=== PATIENT | male | born 1965 | race Caucasian/White ===

== ENCOUNTER → 2017-10-22 | Outpatient (CLI) | payer OTHER ==
[~2017-10-22] MED LIST: ADVIL100 M2 PO; ALEVE220 MG PO; ATORVASTATIN CA20 MG PO; BAYER CHEWABLE81 MG PO; LOPRESSOR 50 MG50 M1 PO; NICOTINE GUM2 MG BC; NITROGLYCERIN0.4 MG SL; PLAVIX 75 MG TA75 MG PO
--- NOTE | 2017-10-25 07:18 | TST ---
[place] [address] TREADMILL STRESS TEST Name: HICKEYJANE Epps Room: [facility]#: [id number] Admission: 10/22/17 Attend Phys: Dannie Graves MD Discharge: Date of : 67 Date of Service: 10/22/17 1222 Report #: [id number] THIS REPORT FOR: //name// CC: Dannie Edward DATE OF SERVICE: 10/22/2017 TITLE OF PROCEDURE: Exercise stress test. INDICATIONS: Exercise stress test was requested in this patient with a history of coronary artery disease. RESULTS: The patient was exercised on a Chip protocol from a pretest heart rate of 60, blood pressure 134/88. The patient was able to exercise for 9 minutes on a Chip protocol achieving a peak heart rate of 160, which was greater than 85% of maximum predicted heart rate for the patient's age. Peak blood pressure 196/94. In recovery, the patient had heart rate of 92, blood pressure 154/96. The patient denied any chest pain with exercise terminated because of achieving target heart rate. The patient's resting ECG showed a normal sinus rhythm with no significant ST or T-wave change noted at baseline. With exercise, there was no arrhythmia noted. There was only rare PVC and ventricular couplet noted. At peak exercise, the patient was noted to have J-point depression, but there was no significant ST-segment depression at 80 milliseconds after the J-point. IMPRESSION: 1. Adequate exercise tolerance. 2. No chest pain with exercise. 3. No ischemic ST segment change with exercise. 4. Negative exercise stress test for myocardial ischemia. 5. This stress test is felt to be a low-risk study for future cardiac events. <ELECTRONICALLY SIGNED> By: Dannie Graves MD, FACC 10/25/17 0718 1222 1941 Dannie Graves MD, FACC /nt
== END ==
LOC: M.CRD 10:40
DX: I25.118 Atherosclerotic heart disease of native coronary artery with other forms of angina pectoris (principal)

== ENCOUNTER 2019-09-06 08:36 | Observation (INO) | payer OTHER ==
[2019-09-06] VITALS (19 sets, daily range): BP systolic 115–152; BP diastolic 68–88
[~2019-09-06] VITALS: Ht 175.3 cm; Wt 102.1 kg
[~2019-09-06 08:36] MED LIST changes: -LOPRESSOR 50 MG50 M1 PO; +LOPRESSOR50 PO; +METFORMIN HCL500 MG PO
[2019-09-06 09:10] LABS: HEMATOCRIT 44.4 % (42.0-52.0); HEMOGLOBIN 16.2 gm/dL (14.0-18.0); MCH 31.2 pg (26.0-34.0); MCHC 36.6 g/dL (28.0-37.0); MCV 85.4 fL (80.0-100.0); MPV 8.9 fl. (7.2-11.1); RBC 5.2 mil/uL (4.50-6.00); RDW-CV 13.8 % (10.5-14.5); WBC 7.7 thou/uL (4.0-11.0)
--- NOTE | 2019-09-06 09:32 | EKG ---
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: : 1965 Requested By: Dannie Graves Order Number: [id number] Reading MD: Dannie Graves Measurements Intervals [place] Rate: 57 P: 66 [place]: 195 QRS: 82 QRSD: 108 T: 32 QT: 431 QTc: 420 Interpretive Statements Sinus bradycardia Low voltage, extremity leads Compared to ECG 12/02/2012 08:51:16 No significant changes Electronically Signed On 09-06-2019 9:30:22 CDT by Dannie Graves [email or web address] <ELECTRONICALLY SIGNED> By: Dannie Graves MD, [facility] 09/06/19929 1 1 Dannie Graves MD, [facility] /EPI
[2019-09-06 09:56] LABS: ANION GAP 11 mmol/L (7-16); APTT 25.4 Seconds (25.0-31.3); BUN 18 mg/dL (7-18); CALCIUM 8.9 mg/dL (8.5-10.1); CHLORIDE 104 mmol/L (98-107); CO2 24 mmol/L (21-32); CREATININE 1.1 mg/dL (0.6-1.3); GLUCOSE 223 mg/dL (70-99); INR 1.1; POTASSIUM 4.2 mmol/L (3.5-5.1); PROTIME 10.8 Seconds (9.20-11.50); SODIUM 139 mmol/L (136-145)
[2019-09-06 10:01] LABS: ALKALINE PHOSPHATASE 63 U/L (46-116); CHOLESTEROL 156 mg/dL (<200); HDL CHOLESTEROL 25 mg/dL (>40); LDL CHOLESTEROL 80 mg/dL (<100); SGOT 41 U/L (15-37); SGPT 78 U/L (30-65); TC:HDL 6.2 Ratio (Not establshd); TOTAL BILIRUBIN 0.8 mg/dL (<0.1-1.0); TOTAL PROTEIN 7.5 g/dL (6.4-8.2); TRIGLYCERIDE 258 mg/dL (<150); VLDL 52 mg/dL (<40)
[2019-09-06 10:02] LABS: SERUM ASSESSMENT Clear
--- NOTE | 2019-09-06 14:15 | EKG ---
[place] [address] ELECTROCARDIOGRAM REPORT Name: JANE HICKEY Room: [address] M.R.#: [id number] Admission: 09/06/19 Attend Phys: Dannie Graves MD Discharge: Date of : 67 Date of Service: 09/06/19 1331 Report #: [id number] THIS REPORT FOR: //name// [facility] Test Date: 2019-09-06 Test Time: 13:31:07 Pat Name: JANE HICKEY Department: Room: [address] Gender: M Mooner: : 1965 Requested By: Dannie Graves Order Number: [id number] Dylan MD: Dannie Graves Measurements Intervals [place] Rate: 67 P: 39 [place]: 198 QRS: 92 QRSD: 113 T: 1 QT: 434 QTc: 458 Interpretive Statements Sinus rhythm Borderline intraventricular conduction delay Borderline low voltage, extremity leads Compared to ECG 09/06/2019 09:22:18 Sinus bradycardia no longer present Electronically Signed On 09-06-2019 14:13:48 CDT by Dannie Graves [email or web address] <ELECTRONICALLY SIGNED> By: Dannie Graves MD, [facility] 09/06/19 1413 1331 1331 Dannie Graves MD, [facility] /EPI
--- NOTE | 2019-09-06 16:18 | CARD ---
[address] [address] CARDIAC CATH REPORT Name: JANE HICKEY Room: [address]#: [id number] Admission: 09/06/19 Attend Phys: Dannie Graves MD, F Discharge: Date of : 67 Report #: [id number] THIS REPORT FOR: //name// cc: Danish Edward Karl ~ APPROVED REPORT Study performed: 09/06/2019 09:29:49 Patient Details Patient Status: Out-Patient Room #: The patient is a 53 year-old male Event Personnel Dannie Graves Water System Operator, Lupe Lowe RN RN, Evangelina Stevenson RTR Scrub, Evangelina Stevenson RTR Scrub, Brice Astudillo ENVIRONMENTAL AIDE Monitor Procedures Performed TEJ Place w/wo Plasty RCA [id number] Left Heart Cath w/or w/o Coronaries [id number] [facility] Indication Positive stress test, Chest pain Risk Factors Hypercholesterolemia, Coronary Artery Disease, Diabetes Previous Procedures/Diagnoses Previous PCI, Previous MT Admission/Lab Medications/Medications given during procedure Glycoprotein IllbIlla Inhibitors, Heparin Unfract. Procedure Narrative The patient was brought electively to the Cardiac Catheterization Laboratory and was prepped and draped in a sterile manner. The right wrist was infiltrated with 1% Lidocaine subcutaneous anesthesia. A Slender Glidesheath sheath was inserted into the RRA. Coronary angiography was performed using coronary diagnostic catheters. The right coronary system was accessed and visualized with a JR4 catheter. The left coronary system was accessed and visualized with a JL 3.5 6fr catheter. The left ventricle was accessed and visualized with a PIG catheter. Left ventricular/A[place] [address] CARDIAC CATH REPORT Name: HICKEY,JANETORO GÓMEZ JR Room: [address]#: [id number] Admission: 09/06/19 Attend Phys: Dannie Graves MD, F Discharge: Date of : 67 Report #: [id number] via catheter pullback. Closure device was deployed with a 6 Fr Vasc-Band Reg 24cm. The patient tolerated the procedure well and there were no complications associated with the procedure. There was no hematoma. Unable to cannulate left main artery with JL4.0 catheter. Intraoperative Conscious Sedation Sedation start time: 10:37 Case end Time: 11:45 Fluoro Time: 16.5 minutes Dose: DAP 3340 cGycm2 121 mGy Contrast Type and Amount: Omnipaque 205 ml Coronary Angiography The patient's coronary anatomy is right dominant. Diagnostic Cath Left Main 30% distal stenosis LAD 60% mid stenosis Diagonal 1 small vessel with 80% proximal stenosis Circumflex small vessel with 90% proximal and 90% distal stenosis Right Coronary long stent at the acute margin of the vessel appeared occluded and filled retrograde by collaterals from the left coronary artery. Ramus large vessel with 70% proximal stenosis noted Left Ventriculography The left ventricular ejection fraction is estimated to be 45-50%. Left ventricular wall motion abnormalities are present. There is no mitral insufficiency. mild inferior hypokinesis noted Hemodynamics The aortic pressure is 102/54 mmHg with a mean of 75 mmHg. The left ventricular pressure is 97/10 mmHg with a mean of mmHg. The left ventricular end diastolic pressure is 10 mmHg. There was no gradient across the aortic valve upon pullback. Pullback from the left ventricle to the aorta revealed no gradient across the aortic valve. PCI Technique Lesion Anticoagulation was achieved with Heparin. bolus of IV aggrastat given Percutaneous coronary intervention was performed on the mid right coronary artery. The lesion stenosis [place] [address] CARDIAC CATH REPORT Name: HICKEYJANE Epps JR Room: [address]#: [id number] Admission: 09/06/19 Attend Phys: Dannie Graves MD, F Discharge: Date of : 67 Report #: [id number] 100% with MURIEL 0 flow. A JCR4 5 Fr Guide Catheter was used to engage the rca ostium. A Choice PT Wire extrasupport 182cm Interventional Guidewire was used to cross the lesion. BALLOON DILATION A Balloon catheter Trek RX 2.5 X 8 was inserted and inflated up to 8.00atm for 21seconds. Repeat angiography revealed the following post-dilatation results: 60% stenosis. Additional Inflation: 12.00atm for 14seconds. Additional Inflation: 12.00atm for 11seconds. BMW wire was unable to cross the stenosis. STENT DEPLOYMENT A drug-eluting stent [place] RX Stent 2.5X38mm was inserted and inflated up to 10.00atm for 8seconds. Repeat angiography revealed the following post-stent deployment results: 0% stenosis. Additional Inflation: 16.00atm for 14seconds. Second 2.75 mm x 38 mm stent was placed in the mid rca proximal to the first stent so that there was minimal overlap between this stent and the more distal first stent. A third 3.0mm x 15 mm stent was placed proximally so the there was minimal overlap between this stent and the second stent placed in the mid rca. Final angiography reveals 0 % stenosis with MURIEL 3 flow. COMMENTS Long area of stenosis noted after PTCA of the chronically occluded proximal and mid RCA that went all the way to the distal bifircation of the RCA, required 3 tandem stents to cover the entire area of stenosis. Stent Deployment A stent [place] RX Stent 2.73m16sc was inserted and inflated up to 15atm for 21seconds. Additional Inflation: 16atm for 20seconds. Stent Deployment A stent [place] RX Stent 3.0X15mm was inserted and inflated up to 17atm for 20seconds. Additional Inflation: 17atm for 21seconds. Conclusion 1. 60% stenosis of the mid LAD, and 80% stenosis noted of a small first diagonal branch 2. 2 tandem 90% stenoses noted in a small circumflex artery. 3. 70% proximal stenosis noted in a large ramus artery. 4. 100% occlusion of the stents noted in the mid RCA that filled [address] [address] CARDIAC CATH REPORT Name: JANE HICKEY JR Room: [address]R.#: [id number] Admission: 09/06/19 Attend Phys: Dannie Graves MD, F Discharge: Date of : 67 Report #: [id number] retrograde by collaterals from the left coronary artery. 5. successful placement of 3 drug eluting stents in the proximal and mid rca 6. LVEF 45-50% Recommendations Cardiac Rehabilitation Referral Aggressive Medical Therapy Medications Administered Prasugrel <ELECTRONICALLY SIGNED> By: Dannie Graves MD, [facility] 09/06/19 1616 15 1616Davimich Graves MD, [facility] /INF
[2019-09-07] VITALS: BP 126/71
[2019-09-07 03:51] LABS: HEMATOCRIT 42.9 % (42.0-52.0); HEMOGLOBIN 15.5 gm/dL (14.0-18.0); MCH 31.1 pg (26.0-34.0); MCHC 36.1 g/dL (28.0-37.0); MCV 86.2 fL (80.0-100.0); MPV 7.8 fl. (7.2-11.1); RBC 4.97 mil/uL (4.50-6.00); RDW-CV 13.8 % (10.5-14.5); WBC 7.4 thou/uL (4.0-11.0)
[2019-09-07 04:00] VITALS: BP 123/79
[2019-09-07 04:10] LABS: CALCIUM 8.8 mg/dL (8.5-10.1); POTASSIUM 3.9 mmol/L (3.5-5.1); TROPONIN-I LEVEL 0.12 ng/mL (<0.06)
[2019-09-07 08:00] VITALS: BP 133/76
[2019-09-07 10:25] VITALS: BP 133/76
[2019-09-07 11:35] VITALS: BP 140/90
[2019-09-07] MEDS ORDERED: GLYBURIDE 5 MG T5 M1 PO (13:21)
[2019-09-07] MEDS ORDERED: EFFIENT10 MG PO (13:22)
[2019-09-07] MEDS ORDERED: ACETAMINOPHEN650 M5 PO (13:30)
[2019-09-07 13:34] VITALS: BP 133/76
--- NOTE | 2019-09-07 16:07 | H ---
[address] [address] HISTORY AND PHYSICAL Name: JANE HICKEY JR Room: [address] M.R.#: [id number] Admission: 09/06/19 Attend Phys: Dannie Graves MD, F Discharge: Date of : 67 Report #: [id number] THIS REPORT FOR: //name// cc: Danish Edward Karl ~ THIS REPORT FOR: //name// CC: Dannie Edward DO DATE OF SERVICE: 09/06/2019 HISTORY OF PRESENT ILLNESS: The patient is a 53-year-old white male who was brought to the outpatient department to undergo repeat cardiac catheterization. The patient initially presented back in 2012 with chest pain. He was found to have evidence of a myocardial infarction. I placed two drug-eluting stents in his right coronary artery via the radial approach. He has done well since that time. He stays fairly active. Recently, however, he notes that when he inhaled cold air, he developed a tightness in his chest with exertion. There is no radiation of the pain. He denies any fever or cough. He recently saw my nurse practitioner and underwent a nuclear stress test. He walked on the treadmill and denied any chest pain. There were no ST segment changes noted. There was occasional PVC. Perfusion images showed a bkvrjldg-ld-cbrktg intensity reversible defect in the basal inferior wall consistent with ischemia. I have recommended he undergo repeat cardiac catheterization. PAST MEDICAL HISTORY: Significant for diabetes, hypertension, hyperlipidemia. MEDICATIONS: Include metoprolol, Lipitor, aspirin, metformin. ALLERGIES: HE HAS AN ALLERGY TO SULFA DRUGS. SOCIAL HISTORY: He is . He and his live in [place], [place]. 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 Quit smoking in 2012. REVIEW OF SYSTEMS: There is no history of stroke, asthma, peptic ulcer disease, liver disease, kidney disease, cancer, psychiatric illness, chronic skin condition. PHYSICAL EXAMINATION: GENERAL: Revealed a middle-aged male, who appeared in no distress. VITAL SIGNS: Blood pressure 130/80, pulse is 70, and he is afebrile. HEENT: He was anicteric. Conjunctivae are pink. Mucous membranes moist. NECK: Neck veins are not distended[place] [address] HISTORY AND PHYSICAL Name: JANE HICKEY Room: [address]#: [id number] Admission: 09/06/19 Attend Phys: Dannie Graves MD, F Discharge: Date of : 67 Report #: [id number] CHEST: Clear to auscultation. CARDIOVASCULAR: Regular rate and rhythm. ABDOMEN: Soft. EXTREMITIES: Had no edema. Posterior pulse 2+ bilaterally. SKIN: Cool and dry. NEUROLOGIC: Nonfocal. IMPRESSION AND RECOMMENDATIONS: 1. Coronary artery disease. Previous stent. Abnormal Cardiolite. 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 2. Diabetes. 3. Hypertension. The patient is on a beta kiana. 4. Previous tobacco abuse. <ELECTRONICALLY SIGNED> By: Dannie Graves MD, [facility] 09/07/19 1607 0926 0950Davigama Graves MD, FAC /nt
--- NOTE | 2019-09-07 16:07 | D ---
[facility] [address] [place] [address] DISCHARGE SUMMARY Name: JANE HICKEY JR Room: [address] M.R.#: [id number] Admission: 09/06/19 Attend Phys: Dannie Graves MD, F Discharge: Date of : 67 Report #: [id number] THIS REPORT FOR: //name// cc: Danish Edward Karl ~ THIS REPORT FOR: //name// CC: Dannie Edward DO DATE OF SERVICE: 09/07/2019 DISCHARGE DIAGNOSES: 1. Coronary artery disease. 2. Abnormal stress test. 3. Diabetes. 4. Hypertension. 5. Previous tobacco abuse. CONSULTANTS: None. PROCEDURES: Left heart catheterization from the right radial artery with placement of 3 drug-eluting stents in the right coronary artery. 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 The patient presented with chest pain back in 2012 and is found to have a myocardial infarction. I placed two drug-eluting stents in his right coronary artery via the radial approach that time. He has done well since that time. The last winter, he noticed when he inhaled cold air, he developed a tightness in his chest. There was no radiation to the discomfort. Denies shortness of breath, palpitations. He saw my nurse practitioner in March. She recommended a nuclear stress test. The patient eventually had a stress test done in August. This showed a moderate size severe intensity reversible defect in the inferior wall with an ejection fraction of 53%. 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 He actually denied any recent chest pain, shortness of breath, palpitations. PAST MEDICAL HISTORY: He has had previous knee arthroscopy. He has a history of hyperlipidemia, diabetes, hypertension. MEDICATIONS: Include aspirin, Lipitor and metoprolol. He is no longer on metformin because he developed a discomfort of his chest. ALLERGIES: HE HAS ALLERGY [place] [address] DISCHARGE SUMMARY Name: JANE HICKEY JR Room: [address]#: [id number] Admission: 09/06/19 Attend Phys: Dannie Graves MD, F Discharge: Date of : 67 Report #: [id number] PHYSICAL EXAMINATION: VITAL SIGNS: Blood pressure 130/80 and pulse 70. CHEST: Clear to auscultation. CARDIOVASCULAR: Regular rate and rhythm. ABDOMEN: Soft. EXTREMITIES: Had no edema. SKIN: Warm and dry. NEUROLOGIC: Nonfocal. DIAGNOSTIC DATA: His ECG on admission showed sinus bradycardia, no ST or T-wave change. LABORATORY DATA: On admission, his sodium 139, BUN 13, creatinine 1.0, glucose was 223, SGOT 41, SGPT 78. Cholesterol 156, triglyceride 258, HDL 25, LDL 80. His white blood cell count 7.7 and hemoglobin 16.2. HOSPITAL COURSE: The patient was brought to the outpatient department. I performed left heart catheterization via the right radial artery. Results showed an ejection fraction 45% with inferior wall hypokinesis. There was a 60% narrowing in the mid LAD, small first diagonal branch had an 80% ostial narrowing. The circumflex was a small nondominant vessel with a 90% mid stenosis. The stents in the mid right coronary artery appeared chronically occluded with collateral filling from the left anterior descending artery in a retrograde fashion. There was a medium sized ramus branch, had a 70% stenosis. I then performed angioplasty with reperfusion of the right coronary artery that required placement of 3 drug-eluting stents. He tolerated the procedure well. He had no further chest pain, arrhythmias or shortness of breath. He had no hematoma in the right wrist following the procedure. He was loaded with Effient 60 mg p.o. He was given a bolus of Aggrastat. Prior to discharge, he was ambulating and had no further complaints. At the time of discharge, the patient denied any complaints. He had a blood pressure of 130/70 and pulse is 80. Followup laboratory after procedure included creatinine 1.0. His troponin is 0.12. His hemoglobin is 15.9. He was discharged on his home medications include aspirin 81 mg a day, Lipitor was increased to 40 mg a day. He was to continue metoprolol tartrate 50 mg twice a day. He was started on Effient 10 mg a day and he has nitroglycerin to take as needed for chest pain. He was no longer taking metformin and his blood sugars were noted to be elevated during his hospitalization. I recommended started glyburide 5 mg a day. The patient was discharged and he is scheduled to return to see me in the Cardiology Clinic in 1 month for followup. I recommended he not do any heavy lifting with right arm for 3 days. If he had recurrent chest pain, he was to contact my office. 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 In October, he is scheduled to return to see me in Cardiology Clinic, at that time, we will probably recommend a stress test because of his coronary artery disease. If he continued to have elevated blood pressure, I would [address] [place] [address] DISCHARGE SUMMARY Name: JANE HICKEY Room: [address] M.R.#: [id number] Admission: 09/06/19 Attend Phys: Dannie Graves MD, F Discharge: Date of : 67 Report #: [id number] recommend adding an AVI inhibitor because of vascular disease. I did recommend he checkup with his primary care physician for monitoring his blood sugars. Because of his high triglycerides, I would consider adding Zetia 10 mg a day. <ELECTRONICALLY SIGNED> By: Dannie Graves MD, [facility] 09/07/19 1607 1258 1400Davigama Graves MD, FACC /nt
--- NOTE | 2019-09-07 16:14 | EKG ---
[place] [address] ELECTROCARDIOGRAM REPORT Name: JANE HICKEY Room: [address]R.#: [id number] Admission: 09/06/19 Attend Phys: Dannie Graves MD Discharge: Date of : 67 Date of Service: 09/07/19 0408 Report #: [id number] THIS REPORT FOR: //name// [facility] Test Date: 2019-09-07 Test Time: 04:08:54 Pat Name: JANE HICKEY Department: Room: [address] Gender: M Associate Loan Officer: DT : 1965 Requested By: Dannie Graves Order Number: [id number] Reading MD: Dannie rGaves Measurements Intervals [place] Rate: 73 P: 51 [place]: 195 QRS: 77 QRSD: 106 T: 30 QT: 422 QTc: 465 Interpretive Statements Sinus rhythm Low voltage, extremity leads Compared to ECG 09/06/2019 13:31:07 No significant changes Electronically Signed On 09-07-2019 16:12:24 CDT by Dannie Graves [email or web address] <ELECTRONICALLY SIGNED> By: Dannie Graves MD, [facility] 09/07/19 1612 0408 0408 Dannie Graves MD, [facility] /EPI
== END 2019-09-07 16:45 | disposition home or self-care (01) ==
LOC: M.CL 08:36 → M.TBA-CV 12:20 → M.2W 12:20
PROVIDERS: ADMIT Internal Medicine Cardiovascular Disease
DX: I25.10 Atherosclerotic heart disease of native coronary artery without angina pectoris (principal); E11.9 Type 2 diabetes mellitus without complications; I10 Essential (primary) hypertension; E78.00 Pure hypercholesterolemia, unspecified

== ENCOUNTER → 2021-01-09 | Outpatient (CLI) | payer OTHER ==
[~2021-01-09] MED LIST changes: +ACETAMINOPHEN650 M5 PO; +EFFIENT10 MG PO; +GLYBURIDE 5 MG T5 M1 PO
[2021-01-09 10:50] LABS: ALBUMIN 4.4 g/dL (3.4-5.0); ALKALINE PHOSPHATASE 88 U/L (46-116); ANION GAP 9 mmol/L (7-16); BUN 13 mg/dL (7-18); CALCIUM 8.9 mg/dL (8.5-10.1); CHLORIDE 102 mmol/L (98-107); CHOLESTEROL 158 mg/dL (<200); CO2 26 mmol/L (21-32); CREATININE 1.1 mg/dL (0.6-1.3); GLUCOSE 218 mg/dL (70-99); HDL CHOLESTEROL 30 mg/dL (>40); LDL CHOLESTEROL 89 mg/dL (<100); POTASSIUM 4.1 mmol/L (3.5-5.1); SGOT 60 U/L (15-37); SGPT 84 U/L (30-65); SODIUM 137 mmol/L (136-145); TC:HDL 5.3 Ratio (Not establshd); TOTAL BILIRUBIN 0.9 mg/dL (<0.1-1.0); TOTAL PROTEIN 7.9 g/dL (6.4-8.2); TRIGLYCERIDE 199 mg/dL (<150); VLDL 40 mg/dL (<40)
[2021-01-09 10:54] LABS: SERUM ASSESSMENT Clear
[2021-01-09 23:06] LABS: GLYCOHEMOGLOBIN (HGB A1C) 8.9 % (4.8-5.6)
== END ==
LOC: M.LAB 10:16
PROVIDERS: ATTEND Nurse Practitioner
DX: E11.9 Type 2 diabetes mellitus without complications (principal); E78.5 Hyperlipidemia, unspecified; I25.5 Ischemic cardiomyopathy; I25.10 Atherosclerotic heart disease of native coronary artery without angina pectoris

== ENCOUNTER 2021-06-03 16:15 | Inpatient (IN) | payer OTHER ==
[~2021-06-03] VITALS: Ht 177.8 cm; Wt 105.7 kg
[2021-06-03 16:30] VITALS: BP 142/86
[2021-06-03 17:07] LABS: ABSOLUTE LYMPHOCYTES 0.6 thou/uL (0.8-5.3); ABSOLUTE MONOCYTES 0.5 thou/uL (0.0-1.2); ABSOLUTE NEUTROPHILS 2.7 thou/uL (1.6-8.1); BASOPHILS 0.5 %; HEMATOCRIT 38.9 % (42.0-52.0); HEMOGLOBIN 13.9 gm/dL (14.0-18.0); LYMPHOCYTES 15.9 %; MCH 29.8 pg (26.0-34.0); MCHC 35.6 g/dL (28.0-37.0); MCV 83.5 fL (80.0-100.0); MONOCYTES 12.3 %; NUCLEATED RBCS 0 /100WBC; PLATELET COUNT* 164 thou/uL (150-400); POLYS 71.3 %; RBC 4.66 mil/uL (4.50-6.00); RDW-CV 13.5 % (10.5-14.5); WBC 3.8 thou/uL (4.0-11.0)
[2021-06-03 17:14] LABS: CALCIUM 8.8 mg/dL (8.5-10.1); CREATININE 0.9 mg/dL (0.6-1.3)
[2021-06-03 17:30] LABS: ALBUMIN 3.1 g/dL (3.4-5.0); TOTAL BILIRUBIN 0.9 mg/dL (<0.1-1.0); TOTAL PROTEIN 7.7 g/dL (6.4-8.2)
[2021-06-03 17:53] LABS: BE 0.9 mmol/L (-2 to +3); PCO2 31.7 mmHg (35.0-45.0); PO2 74.2 mmHg (75.0-100.0); pH 7.485 (7.340-7.450)
[2021-06-03 20:41] VITALS: BP 141/68
[2021-06-03 21:30] VITALS: BP 141/68
[2021-06-04 04:00] VITALS: BP 129/82
[2021-06-04 07:50] VITALS: BP 106/57
--- NOTE | 2021-06-04 10:00 | EKG ---
[place] [address] ELECTROCARDIOGRAM REPORT Name: HICKEYJANE Epps JR Room: [address] ADM IN [facility].#: [id number] Admission: 06/03/21 Attend Phys: Walter Khan Discharge: Date of : 67 Date of Service: 06/03/21 1643 Report #: [id number] THIS REPORT FOR: //name// [facility] ED Test Date: 2021-06-03 Test Time: 16:43:41 Pat Name: JANE HICKEY Department: Room: [facility] Gender: M Vice President Regulatory: KEY : 1965 Requested By: Henrik Lujan Order Number: [id number] MD: Dannie Graves Measurements Intervals [place] Rate: 97 P: 38 [place]: 192 QRS: 104 QRSD: 110 T: 26 QT: 426 QTc: 541 Interpretive Statements Sinus rhythm Right axis deviation Prolonged QT interval Compared to ECG 09/07/2019 04:08:54 Right-axis deviation now present Prolonged QT interval now present Electronically Signed On 06-04-2021 10:00:17 IMMIGRATION JUDGE by Dannie Graves [email or web address] <ELECTRONICALLY SIGNED> By: Dannie Graves MD, FAC 06/04/21 1000 1643 1643 Dannie Graves MD, [facility] /EPI
[2021-06-04 12:58] VITALS: BP 129/96
[2021-06-04 14:12] LABS: ABSOLUTE LYMPHOCYTES 0.5 thou/uL (0.8-5.3); ABSOLUTE MONOCYTES 0.4 thou/uL (0.0-1.2); ABSOLUTE NEUTROPHILS 3.8 thou/uL (1.6-8.1); BASOPHILS 0.2 %; HEMATOCRIT 41.8 % (42.0-52.0); HEMOGLOBIN 14.7 gm/dL (14.0-18.0); LYMPHOCYTES 9.8 %; MCH 29.7 pg (26.0-34.0); MCHC 35.1 g/dL (28.0-37.0); MCV 84.6 fL (80.0-100.0); MONOCYTES 8.8 %; MPV 7.9 fl. (7.2-11.1); NUCLEATED RBCS 0 /100WBC; PLATELET COUNT* 227 thou/uL (150-400); POLYS 81.2 %; RBC 4.94 mil/uL (4.50-6.00); RDW-CV 13.4 % (10.5-14.5); WBC 4.7 thou/uL (4.0-11.0)
--- NOTE | 2021-06-04 14:19 | NUR ---
CM ASSESSMENT ASSESSMENT COMPLETED VIA PHONE WITH PT - BECKI [phone]. PT LIVES WITH IN HOME WITH STEPS TO BASEMENT. STEPS DO NOT POSE A PROBLEM FOR PT. PT DOES NOT USE ANY DME FOR MOBILITY. PT USES A CPAP AT HOME. PT IND WITH ADLS. PT HAS NO HX OF SNF, ARU, OR HH. PT REPORTS SHE IS DPOA, BUT NO PAPERWORK IS ON FILE. CM TO FOLLOW.
[2021-06-04 14:34] LABS: ALBUMIN 3.1 g/dL (3.4-5.0); CALCIUM 9.3 mg/dL (8.5-10.1); MAGNESIUM 2.5 mg/dL (1.8-2.4); POTASSIUM 3.5 mmol/L (3.5-5.1); TOTAL BILIRUBIN 0.8 mg/dL (<0.1-1.0)
[2021-06-04 17:40] VITALS: BP 123/76
[2021-06-04 20:35] VITALS: BP 132/71
[2021-06-05 00:42] VITALS: BP 119/71
[2021-06-05 04:02] VITALS: BP 119/68
--- NOTE | 2021-06-05 04:17 | NUR ---
ASSUMED CARE OF PT AT 1900. PT IS ALERT AND ORIENTED. VSS. PERRLA. NO COMPLAINTS OF PAIN. PT IS ON 9 LITERS O2. PT IS IN SINUS RYTHM ON THE TELEMETRY. PT IS RESTING COMFORTABLY IN BED. RESPIRATIONS ARE EVEN AND NONLABORED. WILL CONTINUE TO MONITOR PT.
[2021-06-05 08:00] VITALS: BP 110/62
[2021-06-05 09:10] LABS: HEMATOCRIT 40.8 % (42.0-52.0); HEMOGLOBIN 14.3 gm/dL (14.0-18.0); MCH 29.6 pg (26.0-34.0); MCV 84.7 fL (80.0-100.0); MPV 8.1 fl. (7.2-11.1); RBC 4.81 mil/uL (4.50-6.00); RDW-CV 13.6 % (10.5-14.5); WBC 5.4 thou/uL (4.0-11.0)
[2021-06-05 09:30] LABS: ALBUMIN 2.9 g/dL (3.4-5.0); CALCIUM 8.9 mg/dL (8.5-10.1); CREATININE 0.9 mg/dL (0.6-1.3); MAGNESIUM 2.3 mg/dL (1.8-2.4); POTASSIUM 3.6 mmol/L (3.5-5.1); TOTAL BILIRUBIN 0.7 mg/dL (<0.1-1.0); TOTAL PROTEIN 7.6 g/dL (6.4-8.2)
--- NOTE | 2021-06-05 11:20 | NUR ---
Nutrition: Pt admitted with COVID PNA. Assessed for nsg risk. H/o tobacco, COPD. Labs: BG 200s, albumin 2.9. Meds: remdesivir, statin, glyburide, aspirin. CHO controlled diet. Wt is at usual, 233#. No meal intake % recorded. GOALS: >75% of meals consumed, tight BG control. Consider mild to low risk.
[2021-06-05 12:00] VITALS: BP 114/60
--- NOTE | 2021-06-05 12:40 | 2DMMODE ---
[place] [address] 2 D/M-MODE ECHOCARDIOGRAM Name: JANE HICKEY JR Room: [address] IN [facility]#: [id number] Admission: 06/03/21 Attend Phys: Walter Khan Discharge: Date of : 67 Date of Service: 06/05/21 1240 Report #: [id number] THIS REPORT FOR: cc: FAM - No family physician/PCP FAM - No family physician/PCP Andrey Casas MD [facility] ~ APPROVED REPORT Study performed: 06/05/2021 10:53:39 EXAM: Comprehensive 2D, Doppler, and color-flow Echocardiogram Patient Location: In-Patient Room #: [facility] Status: routine BSA: 2.23 HR: 75 bpm BP: 110/62 mmHg Rhythm: NSR Other Information Study Quality: Good Indications Dyspnea CAD 2D Dimensions IVSd: 12.13 (7-11mm) LVOT Diam: 21.23 (18-24mm) LVDd: 47.83 mm PWd: 10.50 (7-11mm) Ascending Ao: 33.56 (22-36mm) LVDs: 27.59 (25-40mm) Aortic Root: 32.60 mm Volumes Left Atrial Volume (Systole) LA ESV Index: 25.00 mL/m2 Aortic Valve AoV Peak Abdias.: 1.52 m/s AO Peak Gr.: 9.19 mmHg LVOT Max P.23 mmHg AO Mean Gr.: 5.90 mmHg LVOT Mean P.38 mmHg LVOT Max V: 1.34 m/s AO V2 VTI: 31.72 cm LVOT Mean V: 0.83 m/s OLAF (VTI): 3.32 cm2 LVOT V1 VTI: 29.75 [place] [address] 2 D/M-MODE ECHOCARDIOGRAM Name: JANE HICKEY JR Room: [address] IN [facility]#: [id number] Admission: 06/03/21 Attend Phys: Walter Khan Discharge: Date of : 67 Date of Service: 06/05/21 1240 Report #: [id number] Mitral Valve E/A Ratio: 1.72 MV Decel. Time: 198.91 ms MV E Max Abdias.: 0.90 m/s MV PHT: 57.68 ms MVA (PHT): 3.81 cm2 TDI E/Lateral E': 6.43 E/Medial E': 8.18 Medial E' Abdias.: 0.11 m/s Lateral E' Abdias.: 0.14 m/s Pulmonary Valve PV Peak Abdias.: 1.34 m/s PV Peak Gr.: 7.16 mmHg Left Ventricle The left ventricle is normal size. There is normal LV segmental wall motion. There is normal left ventricular wall thickness. Left ventricular systolic function is normal. LVEF is 60-65%. Transmitral Doppler flow pattern suggests impaired LV relaxation. Right Ventricle The right ventricle is normal size. The right ventricular systolic function is normal. Atria The left atrium size is normal. The right atrium size is normal. Aortic Valve Mild aortic valve sclerosis. No aortic regurgitation is present. There is no aortic valvular stenosis. Mitral Valve The mitral valve is normal in structure. Trace mitral regurgitation. No evidence of mitral valve stenosis. Tricuspid Valve The tricuspid valve is normal in structure. Unable to assess PA pressure. Trace tricuspid regurgitation. Pulmonic Valve The pulmonary valve is normal in structure. There is no pulmonic [place] [address] 2 D/M-MODE ECHOCARDIOGRAM Name: JANE HICKEY JR Room: [address] IN [facility]#: [id number] Admission: 06/03/21 Attend Phys: Walter Khan Discharge: Date of : 67 Date of Service: 06/05/21 1240 Report #: [id number] Great Vessels The aortic root is normal in size. IVC is normal in size and collapses >50% with inspiration. Pericardium There is no pericardial effusion. <Conclusion> The left ventricle is normal size. There is normal left ventricular wall thickness. Left ventricular systolic function is normal. LVEF is 60-65%. Transmitral Doppler flow pattern suggests impaired LV relaxation. There is normal LV segmental wall motion. Mild aortic valve sclerosis. Trace mitral regurgitation. Trace tricuspid regurgitation. IVC is normal in size and collapses >50% with inspiration. <ELECTRONICALLY SIGNED> By: Andrey Casas MD, FACC 06/05/21 1240 1240 1240 Andrey Casas MD, FACC /INF
--- NOTE | 2021-06-05 14:18 | NUR ---
CM FOLLOWUP PT NOT YET MED CLEAR. PT ON 9L O2. CM TO FOLLOW FOR FUTURE DC NEEDS.
[2021-06-05 16:00] VITALS: BP 134/80
[2021-06-05 20:00] VITALS: BP 133/76
[2021-06-06] VITALS (7 sets, daily range): BP systolic 108–144; BP diastolic 60–83
--- NOTE | 2021-06-06 04:04 | NUR ---
ASSUMED CARE OF PT AFTER REPORT AT 1930. PT A&OX4. VSS. PHYSICAL ASSESSMENT COMPLETED AND CHARTED. PT ON O2 AT 8L NC. PT TRACING SR ON TELE. PT UPADLIB TO RESTROOM. CALL LIGHT WITHIN REACH.
[2021-06-06 05:24] LABS: HEMATOCRIT 38.8 % (42.0-52.0); HEMOGLOBIN 13.5 gm/dL (14.0-18.0); MCH 29.4 pg (26.0-34.0); MCHC 34.7 g/dL (28.0-37.0); MCV 84.7 fL (80.0-100.0); RBC 4.58 mil/uL (4.50-6.00); RDW-CV 13.3 % (10.5-14.5); WBC 6.6 thou/uL (4.0-11.0)
[2021-06-06 05:51] LABS: ALBUMIN 2.8 g/dL (3.4-5.0); CALCIUM 8.5 mg/dL (8.5-10.1); CREATININE 0.9 mg/dL (0.6-1.3); MAGNESIUM 2.1 mg/dL (1.8-2.4); POTASSIUM 4.1 mmol/L (3.5-5.1); TOTAL BILIRUBIN 0.6 mg/dL (<0.1-1.0); TOTAL PROTEIN 6.9 g/dL (6.4-8.2)
--- NOTE | 2021-06-06 15:28 | NUR ---
CM FOLLOWUP PT NOT MED CLEAR. PT MAY BE CLEAR FOR DC ON 06/08/21 WITH O2 NEEDS. INOGEN REFERRAL ON PT CHART. PLEASE ADD RESULTS FROM REST/EX TO REFRRAL AND FOWARD TO APRIA.
--- NOTE | 2021-06-06 19:14 | CON ---
[address] [address] CONSULTATION Name: HICKEYJANE Epps JR Room: [address] IN [facility]#: [id number] Admission: 06/03/21 Attend Phys: Mich Heath Discharge: Date of : 67 Report #: [id number] THIS REPORT FOR: cc: SHERMAN - Sandra family physician/PCP SHERMAN - No family physician/PCP Gabino Gamez MD ~ DATE OF CONSULTATION: 06/04/2021 REQUESTING PHYSICIAN: Dr. Estee Larsen. INDICATION FOR CONSULTATION: Acute hypoxemic respiratory failure secondary to COVID-19. HISTORY OF PRESENT ILLNESS: A 55-year-old gentleman with past medical history includes a history of coronary artery disease. He has had cardiac stents, left ventricular ejection fraction is mildly decreased to 45-50%. He is an extensive history of smoking; however, he has not been previously diagnosed with COPD. He is not vaccinated for COVID-19. He does have a family history of COVID-19. The patient is now admitted with acute shortness of breath. He has also been coughing, bringing up small amounts of clear sputum only, has had significant nasal congestion as well as generalized weakness. The patient is noted to be hypoxemic on initial presentation, currently is requiring 10 liters of oxygen to maintain O2 saturation in the low 90s. The patient at this time in fact appears to be stable on this ____ and he is complaining of only mild shortness of breath at rest. He does not have swelling of lower extremities. There is no calf pain. REVIEW OF SYSTEMS: Review of systems for 12 points is negative except as mentioned above. PAST MEDICAL HISTORY: Coronary artery disease, status post stents; non-ST elevation myocardial infarction, left ventricular ejection fraction on last cardiac catheterization is decreased to 45-50%. I do not have a previous echo available. Diabetes is not mentioned on the records; however, his medications are consistent with this and he has been on glyburide. Also, history of diverticulosis, tonsillectomy, adenoidectomy, knee surgery. SOCIAL HISTORY: There is an extensive history of smoking. There is a past history of drug use as well. I do not have details available. CURRENT MEDICATIONS: List in [employer] reviewed. HOME MEDICATIONS: List in [employer] [place] [address] CONSULTATION Name: JANE HICKEY JR Room: [address]#: [id number] Admission: 06/03/21 Attend Phys: Mich Heath Discharge: Date of : 67 Report #: [id number] ALLERGIES: HE IS REPORTED TO HAVE BECOME A COMBATIVE AFTER RECEIVING MIDAZOLAM THIS IS A SIDE EFFECT AND NOT A TRUE ALLERGY. IF NEEDED, THEN THE PATIENT COULD BE GIVEN BENZODIAZEPINES INCLUDING VERSED WHILE KEEPING THIS IN ACCOUNT. HE IS ALSO REPORTED TO BE ALLERGIC TO SULFONAMIDE ANTIBIOTICS AND HAS HAD VOMITING AFTER RECEIVING AN INFLUENZA VACCINE. FAMILY HISTORY: There is history of COVID-19 in his family. VACCINATION HISTORY: Unvaccinated for COVID-19. PHYSICAL EXAMINATION: GENERAL: He is alert, awake and oriented, does not appear to be in any distress. VITAL SIGNS: In the records reviewed, he has 10 liters nasal cannula, saturating 93%. HEENT: Head is normocephalic and atraumatic. NECK: Does not show raised JVP, asymmetry, mass or lymph nodes. CHEST: Symmetrical expansion on inspection and palpation. On auscultation, breath sounds are bilaterally equal. No added sounds. HEART: Regular. There is no murmur. ABDOMEN: Soft and nontender. EXTREMITIES: Lower extremities, no edema, no calf tenderness. SKIN: Dry and intact. NEUROLOGIC: Moves all extremities bilaterally equally and spontaneously with no focal deficit identified. Lab work and chest x-rays as well as CTA chest performed yesterday in [facility] reviewed. I repeated a chest x-ray now as well consistent with COVID-19. ASSESSMENT/PLAN: 1. Acute hypoxemic respiratory failure secondary to COVID-19. Continue to titrate oxygen. Avoid supine sleep. Prone positioning preferred. Continue to ambulate to chair. 2. COVID-19. He is on dexamethasone. I agree with the same. Also, agree with remdesivir and he has received 1 dose of Actemra as well and agree with the same also. Recommend following LFTs while on remdesivir. 3. Pulmonary infiltrates. These are most likely secondary to COVID-19. No definite evidence of secondary bacterial infection, but for now, he is to cover with antibiotics to cover the possibility. He is currently on doxycycline as well as ceftriaxone. I did not make a change at this time. I ordered a nasal swab for MRSA as well as sputum culture. 4. Coronary artery disease, status post stents/reduction in left ventricular ejection fraction to 45-50%. Recommend obtaining an echocardiogram. 5. Extensive history of smoking/possible chronic obstructive pulmonary disease. [address] [address] CONSULTATION Name: JANE HICKEY JR Room: [address] IN ..#: [id number] Admission: 06/03/21 Attend Phys: Mich Heath Discharge: Date of : 67 Report #: [id number] He is on dexamethasone as above, also on DuoNeb, but continue the same. 6. Hyperglycemia/history of glyburide use at home, which is consistent with diabetes. Glucose is arising; therefore, pending further review by the hospitalist service. I changed his insulin sliding scale to moderate. 7. Deep vein thrombosis prophylaxis. He is on Lovenox 60 mg daily for now. We will continue the same. 8. Clostridium difficile prophylaxis, order Lactinex. 9. Gastrointestinal prophylaxis, already on Protonix. Thanks for this consultation. <ELECTRONICALLY SIGNED> By: Gabino Gamez MD 06/06/21 1914 1613 Catalino Gamez MD /nt
[2021-06-07 04:30] VITALS: BP 138/85
[2021-06-07 05:03] LABS: HEMATOCRIT 39.8 % (42.0-52.0); HEMOGLOBIN 13.8 gm/dL (14.0-18.0); MCH 29.4 pg (26.0-34.0); MCHC 34.6 g/dL (28.0-37.0); MCV 84.9 fL (80.0-100.0); MPV 7.8 fl. (7.2-11.1); RBC 4.68 mil/uL (4.50-6.00); RDW-CV 13.9 % (10.5-14.5); WBC 5.9 thou/uL (4.0-11.0)
[2021-06-07 05:59] LABS: ALBUMIN 2.9 g/dL (3.4-5.0); ALKALINE PHOSPHATASE 54 U/L (46-116); ANION GAP 7 mmol/L (7-16); BUN 19 mg/dL (7-18); CALCIUM 8.4 mg/dL (8.5-10.1); CHLORIDE 105 mmol/L (98-107); CHOLESTEROL 121 mg/dL (<200); CO2 26 mmol/L (21-32); CREATININE 0.9 mg/dL (0.6-1.3); GLUCOSE 140 mg/dL (70-99); HDL CHOLESTEROL 25 mg/dL (>40); LDL CHOLESTEROL 68 mg/dL (<100); MAGNESIUM 2.1 mg/dL (1.8-2.4); POTASSIUM 3.7 mmol/L (3.5-5.1); SGOT 57 U/L (15-37); SGPT 75 U/L (30-65); SODIUM 138 mmol/L (136-145); TC:HDL 4.8 Ratio (Not establshd); TOTAL BILIRUBIN 0.6 mg/dL (<0.1-1.0); TOTAL PROTEIN 6.7 g/dL (6.4-8.2); TRIGLYCERIDE 144 mg/dL (<150); VLDL 29 mg/dL (<40)
[2021-06-07 06:01] LABS: SERUM ASSESSMENT CLEAR
--- NOTE | 2021-06-07 06:35 | NUR ---
PT IS A/OX4. UP AD EDISON. 4L NC. ASSESSMENTS COMPLETE CHARTED. MEDICATIONS ADMIN. PRESCRIBED. HOURLY ROUNDS COMPLETE. NO ACUTE CHANGES THIS SHIFT. WILL CONT. TO MONITOR.
[2021-06-07 07:54] VITALS: BP 127/73
[2021-06-07 12:19] VITALS: BP 135/84
[2021-06-07 20:00] VITALS: BP 116/72
[2021-06-07 23:28] VITALS: BP 111/70
[2021-06-08 04:00] VITALS: BP 102/59
--- NOTE | 2021-06-08 06:44 | NUR ---
No acute changes this shift. Pt remains A/Ox4. VSS. O2 at 2L NC. Pt up ad shelia. Assessments and hourly rounding complete as charted. Medications administered as prescribed. Will cont. to monitor.
[2021-06-08 08:16] VITALS: BP 119/82
[2021-06-08] MEDS ORDERED: DOXYCYCLINE 10100 MG PO (08:25)
[2021-06-08] MEDS ORDERED: MUCINEX600 MG PO (08:25)
[2021-06-08] MEDS ORDERED: IPRAT-ALBUT 0.5-3 ML INH (08:25)
[2021-06-08] MEDS ORDERED: DEXAMETHASONE 22 M1 PO (08:25)
[2021-06-08] MEDS ORDERED: CEFDINIR300 MG PO (08:25)
[2021-06-08 11:31] VITALS: BP 119/82
--- NOTE | 2021-06-08 13:58 | NUR ---
Reviewed discharge teaching with patient; verbalized understanding. IV and compliance monitor dc'd. Will isolate until 06/12/2021. Discharged from unit per WC.
--- NOTE | 2021-06-10 14:18 | CON ---
[address] [address] CONSULTATION Name: HICKEY,JANETORO GÓMEZ JR Room: [address]#: [id number] Admission: 06/03/21 Attend Phys: Mich Heath Discharge: 06/08/21 Date of : 67 Report #: [id number] THIS REPORT FOR: cc: SHERMAN - No family physician/PCP FAM - No family physician/PCP Dannie Graves MD [facility] ~ cc: Codey Weinberg DO DATE OF CONSULTATION: 06/06/2021 HISTORY OF PRESENT ILLNESS: The patient is a 55-year-old white male who I was asked to see in the hospital today after he complained to being short of breath. The patient had his first coronary stent placed in 2012 in the right coronary artery by myself here at [facility]. He had 3 additional stents placed in his right coronary artery by myself in 08/2019. I last saw him in the office last December. The patient stays very active. Denies any recent chest pain. Recently, he was short of breath and coughing. He tested positive for COVID. He finally came to the hospital 2 days ago and was admitted. He has been treated for COVID-19 pneumonia. He denies recent chest pain, palpitations, syncope, bleeding. PAST MEDICAL HISTORY: He has had knee arthroscopy, tonsillectomy. He has a history of diabetes, hyperlipidemia. No history of high blood pressure. CURRENT MEDICATIONS: Include aspirin, Lipitor, glyburide, metoprolol. ALLERGIES: HE HAS PREVIOUS ALLERGY TO SULFA DRUGS. FAMILY HISTORY: His grandfather had heart disease. SOCIAL HISTORY: He is . He and his live in [place], [place]. 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 He quit smoking in 2012. No alcohol abuse. REVIEW OF SYSTEMS: No history of stroke, asthma, liver disease, kidney disease, cancer, psychiatric illness, chronic skin condition. PHYSICAL EXAMINATION: GENERAL: A middle-aged male, lying in bed, he appeared in no distress. VITAL SIGNS: He had a blood pressure of 140/80, pulse 90. He is afebrile. HEENT: He was anicteric. Conjunctivae pink. Mucous membranes moist. NECK: Neck veins do not appear distended. No carotid bruits. Neck is supple. CHEST: Clear to auscultation. HEART: Regular rate and rhythm, no significant murmurs. ABDOMEN: Soft. EXTREMITIES: Had no pitting edema. Posterior tibial pulse 2+ [place] [address] CONSULTATION Name: JANE HICKEY JR Room: [address]#: [id number] Admission: 06/03/21 Attend Phys: Mich Heath Discharge: 06/08/21 Date of : 67 Report #: [id number] SKIN: Cool and dry. NEUROLOGIC: Nonfocal. LABORATORY DATA: His ECG on admission showed a sinus rhythm, no significant ST or T-wave changes. Workup since his admission, he had an echocardiogram performed 2 days ago that showed ejection fraction of 60% with aortic sclerosis. The patient had a CTA of his chest on admission that showed no pulmonary embolus. COVID pneumonia, coronary calcification. His chest x-ray showed bilateral interstitial infiltrates, elevated right hemidiaphragm. His lab work on admission revealed the following: Creatinine 0.9. Liver function studies were normal. High sensitivity troponin 10. BNP 27. His hematocrit 38.8. His COVID antigen stat test was positive. IMPRESSION AND RECOMMENDATIONS: 1. Coronary artery disease. No recent angina. I would continue an aspirin a day. The patient is on a beta kiana. 2. Hypertension. The patient is on a beta kiana. 3. Hyperlipidemia. The patient is on a statin drug. 4. Diabetes. 5. COVID-19 pneumonia. <ELECTRONICALLY SIGNED> By: Dannie Graves MD, FACC 06/10/21 1418 1319 [id number] Graves MD, FACC /nt
== END 2021-06-08 13:57 | disposition home or self-care (01) | DRG 177 ==
LOC: M.ERS 16:15 → M.TBA-ER 16:41 → M.2W 16:41 → M.ORTHSURG 16:41 → M.2W 22:15 → M.ORTHSURG 06-04 20:00
PROVIDERS: Internal Medicine; Internal Medicine Critical Care Medicine; Physician Assistant; ADMIT Internal Medicine; ATTEND Internal Medicine
PROC: 5A0935A Assistance with Respiratory Ventilation, Less than 24 Consecutive Hours, High Flow/Velocity Cannula (ICD-10-PCS; principal; 2021-06-03)
PROC: 5A0935A Assistance with Respiratory Ventilation, Less than 24 Consecutive Hours, High Flow/Velocity Cannula (ICD-10-PCS; 2021-06-03)
PROC: XW033E5 Introduction of Remdesivir Anti-infective into Peripheral Vein, Percutaneous Approach, New Technology Group 5 (ICD-10-PCS; 2021-06-03)
PROC: 5A0935A Assistance with Respiratory Ventilation, Less than 24 Consecutive Hours, High Flow/Velocity Cannula (ICD-10-PCS; 2021-06-04)
PROC: 5A0935A Assistance with Respiratory Ventilation, Less than 24 Consecutive Hours, High Flow/Velocity Cannula (ICD-10-PCS; 2021-06-05)
PROC: 5A0935A Assistance with Respiratory Ventilation, Less than 24 Consecutive Hours, High Flow/Velocity Cannula (ICD-10-PCS; 2021-06-06)
DX: U07.1 COVID-19 (principal); J96.01 Acute respiratory failure with hypoxia; J15.6 Pneumonia due to other Gram-negative bacteria; J12.82 Pneumonia due to coronavirus disease 2019; Z79.899 Other long term (current) drug therapy; I25.10 Atherosclerotic heart disease of native coronary artery without angina pectoris; I25.2 Old myocardial infarction; Z88.2 Allergy status to sulfonamides; Z88.8 Allergy status to other drugs, medicaments and biological substances; F17.210 Nicotine dependence, cigarettes, uncomplicated; E11.65 Type 2 diabetes mellitus with hyperglycemia; Z79.4 Long term (current) use of insulin; J44.9 Chronic obstructive pulmonary disease, unspecified; K57.30 Diverticulosis of large intestine without perforation or abscess without bleeding; Z90.49 Acquired absence of other specified parts of digestive tract; Z82.49 Family history of ischemic heart disease and other diseases of the circulatory system